=== PATIENT | female | born 1990 | race African-American/Black ===

== ENCOUNTER 2024-05-29 07:47 | Emergency (ER) | payer BC, OTHER ==
[~2024-05-29] VITALS: Ht 177.8 cm; Wt 109.0 kg
[2024-05-29 07:49] VITALS: O2SAT 98
[2024-05-29 07:51] VITALS: BP 137/88; PULSE 103; RESP 16; O2SAT 100
[2024-05-29 08:24] VITALS: TEMP 98.2
[2024-05-29] MEDS: ACETAMINOPHEN 325MG TABLET PO NR (08:24)
[2024-05-29] MEDS ORDERED: TOPUD MT (09:22)
== END 2024-05-29 09:38 | disposition home or self-care (01) ==
LOC: ER 07:47
DX: M25.572 Pain in left ankle and joints of left foot (principal); Z90.710 Acquired absence of both cervix and uterus
CPT/HCPCS: 29515; 73610; 76604; 99284